=== PATIENT | female | born 1985 | race Caucasian/White ===

== ENCOUNTER 2024-10-27 17:16 | Emergency (ER) | payer SELFPAY ==
[2024-10-27 17:21] VITALS: BP 157/98; PULSE 98; TEMP 36.9; O2SAT 100; BMI 20.1
--- NOTE | 2024-10-27 17:51 | XR_ITS ---
The [address] [address] Patient Name: ANA JONES MRN: [id number] date: 1985 Sex: F Assigned Patient Location: ED.MAIN Current Patient Location: Accession/Order Number: [id number] Exam Date: 10/27/2024 17:45 Report Date: 10/27/2024 20:08 At the request of: BELIA HADLEY Procedure: XR knee LT 4V EXAM: XR knee LT 4V HISTORY: pain COMPARISON: None. TECHNIQUE: AP, oblique, lateral, sunrise view left knee. FINDINGS: No fracture or joint effusion. Normal mineralization. Normal patellofemoral alignment. No periarticular calcification or loose body. Normal mineralization. XR/XR knee LT 4V IMPRESSION: Normal left knee without fracture or joint effusion. Normal joints and soft tissues. Electronically authenticated by: NEO BLOCK Date: 10/27/2024 20:08
--- NOTE | 2024-10-27 19:07 | ED.LOWEXI1 ---
HPI HPI - Extremity Injury (Lower) General Chief Complaint: Extremity Injury, Lower Stated Complaint: LOWER INJURY Time Seen by Provider: 10/27/24 19:00 Mode of arrival: walk-in History of Present Illness HPI Narrative: This 39-year-old female is for evaluation of left knee pain since September 29. The patient states she was on her knees giving her boyfriend a shoulder rub when she felt a popping sensation in her left knee. Since that time she has had intermittent pain and feels a lump over her patella. She denies any aniket injury. She has been wearing a knee brace. She has pain in the patella area as well as posteriorly in the posterior popliteal area and medially. She has no calf pain or swelling. She denies any chest pain or shortness of breath. Related Data Home Medications ?Medication ?Instructions ?Recorded ?Confirmed No Known Home Medications 10/27/24 10/27/24 Allergies Allergy/AdvReac Type Severity Reaction Status Date / Time Penicillins AdvReac Severe Hives Verified 10/27/24 17:21 Opioid HPI Opioid Management Most Recent Pain and Opioid Data: Last Pain Scale 2 10/27/24 18:33 10/27/24 Review of Systems ROS Status of ROS 10 or more systems reviewed and unremarkable except as noted in history and below PFSH PFSH Social History Little interest or pleasure in doing things: not at all Feeling down, depressed, or hopeless: not at all Exam Narrative Exam Narrative: Vital signs and Nursing Notes reviewed: Patient is afebrile with a normal pulse, blood pressure is elevated 157/98, she is not hypoxic with pulse ox of 100% on room air General: Awake, alert, oriented, no acute distress, lying comfortably on the stretcher HEENT: Normocephalic atraumatic, mucous membranes are moist and pink, eyes are clear, normal conjunctiva, vision is grossly intact Chest: Lungs are clear to auscultation with good air entry, there is no wheezing rhonchi or rales appreciated no accessory muscle use, patient is speaking in complete sentences-no chest wall tenderness to palpation CVS: Regular rate and rhythm S1-S2, no murmurs rubs or gallops, pulses are brisk and equal bilaterally ABD: Soft, nondistended, nontender, no rebound guarding or rigidity, bowel sounds are normal, no pulsatile masses appreciated Extremities: Moving all extremities, mild discomfort with full extension of the left knee. The joint is stable with a normal anterior draw. There is no pain with valgus or varus strain. There is no crepitus effusion redness swelling or other notable deformity. There is no tenderness in the calf. Skin: Normal in appearance without rash,pallor, petechiae or purpura Neuro: No focal deficits Constitutional Vital Signs, click to edit/add: Last Vital Signs Temp 98.4 F 10/27/24 17:21 Pulse 98 H 10/27/24 17:21 Resp 18 10/27/24 17:21 BP 157/98 H 10/27/24 17:21 Pulse Ox 100 10/27/24 17:21 Course Vital Signs Vital signs: Vital Signs Temperature 98.4 F 10/27/24 17:21 Pulse Rate 98 H 10/27/24 17:21 Respiratory Rate 18 10/27/24 17:21 Blood Pressure 157/98 H 10/27/24 17:21 Pulse Oximetry 100 10/27/24 17:21 Temperature 98.4 F 10/27/24 17:21 Pulse Rate 98 H 10/27/24 17:21 Respiratory Rate 18 10/27/24 17:21 Blood Pressure 157/98 H 10/27/24 17:21 Pulse Oximetry 100 10/27/24 17:21 MDM - Extremity Injury (Lower) MDM Narrative Medical decision making narrative: This 39-year-old female presents for evaluation of pain in her left knee that has been present since September 29 after she felt a popping sensation while kneeling on her knee. She has some mild tenderness over the patella without effusion crepitus or other notable abnormality. She has a normal anterior draw test and no pain with valgus or varus strain. She has been wearing a knee brace that gives her some relief. X-ray of the extremity is normal with questionable small area of deformity overlying the patella. She is stable for discharge. She will be referred to outpatient orthopedics and prescribed ibuprofen to use as needed for ongoing or worsening pain. Discharge Plan Discharge Chief Complaint: Extremity Injury, Lower Clinical Impression: Knee sprain Patient Disposition: Home, Self-Care Time of Disposition Decision: 19:13 Condition: Good Prescriptions / Home Meds: No Action No Known Home Medications Print Language: Uzbek Instructions: Knee Sprain (ED) Referrals: Physician,Non-Staff, [Primary Care Provider] - 1 week Foy,Abdullahi C, MD [Physician] - 1 week
== END 2024-10-27 19:20 | disposition home or self-care (01) ==
PROVIDERS: Emergency Provider Emergency Medicine
DX: S83.92XA Sprain of unspecified site of left knee, initial encounter (principal); X58.XXXA Exposure to other specified factors, initial encounter
CPT/HCPCS: 73564; 99283

== ENCOUNTER 2024-11-28 06:42 | Outpatient (OUT) | payer MEDICAID, SELFPAY ==
--- OUTSIDE RECORDS SUMMARY | 2024-11-28 06:45 | XMS_ITS | CCD ---
Author Organization [facility] Care Team Providers Care Pilot Instructor Name Role Phone SMAILI, MARCUS K Unavailable Unavailable SMAILI, MARCUS K Unavailable Unavailable SMAILI, MARCUS K Unavailable Unavailable ELVIE CELIS Unavailable Unavailable TONA ANGEL Attending Unavailable MAKAYLA MCCAIN Consulting Unavailable REQUEST, NONE LISTED Primary Care Unavailable TONA ANGEL Admitting Unavailable TONA ANGEL Consulting Unavailable VLADIMIR HARDIN Attending Unavailable NO PCP, NO PCP Primary Care Unavailable VLADIMIR HARDIN Attending Unavailable VLADIMIR HARDIN Referring Unavailable NO PCP, NO PCP Primary Care Unavailable NO PCP, NO PCP Primary Care Unavailable Allergies Allergy Classification Reported Allergen(s) Allergy Type Date of Onset Reaction(s) Facility (2 sources) Latex; Translations: [latex] Propensity to adverse reactions (disorder) 5 [facility] Repository (2 sources) Penicillins; Translations: [PENICILLINS] Drug allergy (disorder) 2 [facility] Repository (2 sources) Iodinated Contrast Media - IV Dye Drug allergy (disorder) 2 [facility] Repository (1 source) Penicillin Drug Allergy [facility] Repository (1 source) IODINATED CONTRAST MEDIA; Translations: [IODINATED CONTRAST MEDIA] Propensity to adverse reactions to drug (disorder) 8 [facility] Repository Problems Active Problems Problem Classification Problem Date Documented Da te Episodic/Chronic Abdominal pain (4 sources) Epigastric pain; Translations: [EPIGASTRIC PAIN] Onset: 09-08-2020 Episodic Abdominal pain (4 sources) Pelvic and perineal pain; Translations: [PELVIC AND PERINEAL PAIN] Onset: 04-17-2017 Fluid and electrolyte disorders (1 source) Dehydration; Translations: [DEHYDRATION] Onset: 09-10-2020 Episodic Unclassified (2 sources) Unknown / UNK(Unknown) Onset: 04-17-2017 Unclassified (1 source) Dehydrated Onset: 03-22-2024 Past or Other Problems Problem Classification Problem Date Documented Da te Episodic/Chronic Biliary tract disease (1 source) Calculus of gallbladder without cholecystitis without obstruction; Translations: [CALCULUS OF GALLBLADDER W/O CHOLECYSTITIS W/O OBSTRUCTION] Onset: 04-17-2017 Episodic Nausea and vomiting (4 sources) Nausea with vomiting, unspecified; Translations: [Nausea] Onset: 09-10-2020 Episodic Other gastrointestinal disorders (1 source) Diarrhea, unspecified; Translations: [Diarrhea, unspecified] Onset: 03-22-2024 Episodic Other gastrointestinal disorders (1 source) Diarrhea Onset: 03-22-2024 Episodic Results Test Name Value Interpretation Reference Range Facil ity BASIC METABOLIC PANLon 03-22 Anion gap [Moles/Vol] 11 mmol/L Normal 5-15 [facility] Comment on above: Performed By: #### C ELIOT PALMA, 3040-3, LIVR #### [facility] ([id number]) [address] [place] [address] 54702 Calcium [Mass/Vol] 9.0 mg/dL Normal 8.5-10.5 [facility] Comment on above: Performed By: #### ELIOT Etienne BCA, 3040-3, LIVR #### [facility] ([id number]) [address] [place] [address] 62954 Chloride [Moles/Vol] 110 mmol/L High 98-109 [facility] Comment on above: Performed By: #### Lowell PALMA BMP, 3040-3, LIVR #### [facility] ([id number]) [address] [place] [address] 08416 CO2 [Moles/Vol] 18 mmol/L Low 22-32 [facility] Comment on above: Performed By: #### Lowell PALMA BMP, 3040-3, LIVR #### [facility] ([id number]) [address] [place] [address] 32843 Creatinine [Mass/Vol] 0.99 mg/dL Normal 0.40-1.00 [facility] Comment on above: Result Comment: METH OD TRACEABLE TO IDMS STANDARD Performed By: #### C LOUIE BMP, 3040-3, LIVR #### [facility] ([id number]) [address] [place] [address] 40744 GFR/1.73 sq M.predicted among non-blacks MDRD (S/P/Bld) [Vol rate/Area] 74 mL/min/{1.73_m2} Normal >59 [facility] Comment on above: Result Comment: Reported eGFR is based on the CKD-EPI 2020 equation that does not use a race coefficient. Performed By: #### C LOUIE BMP, 3040-3, LIVR #### [facility] ([id number]) [address] [place] [address] 79508 Glucose [Mass/Vol] 124 mg/dL High 65-99 [facility] Comment on above: Performed By: #### C LOUIE BMP, 3040-3, LIVR #### [facility] ([id number]) [address] [place] [address] 81081 Potassium [Moles/Vol] 3.5 mmol/L Normal 3.5-5.0 [facility] Comment on above: Performed By: #### C LOUIE BMP, 3040-3, LIVR #### [facility] ([id number]) [address] [place] [address] 95206 Sodium [Moles/Vol] 139 mmol/L Normal 134-146 [facility] Comment on above: Performed By: #### C LOUIE BMP, 3040-3, LIVR #### [facility] ([id number]) [address] [place] [address] 76653 Urea nitrogen [Mass/Vol] 11 mg/dL Normal 5-23 [facility] Comment on above: Performed By: #### C BCA, BMP, 3040-3, LIVR #### [facility] ([id number]) [address] [place] [address] 61611 CBC AND AUTO DIFFon 03-22- 24 ABSOLUTE BASOPHIL 0.0 X10E9/L Normal 0.0-0.2 [facility] Comment on above: Performed By: #### C LOUIE, BMP, 3040-3, LIVR #### [facility] ([id number]) [address] [place] [address] 15350 ABSOLUTE NEUTROPHIL 7.3 X10E9/L High 1.5-6.6 [facility] Comment on above: Performed By: #### C LOUIE, ELIOT, 0-3, LIVR #### [facility] ([id number]) [address] [place] [address] 76502 Basophils/100 WBC (Bld) 0.4 % Normal [facility] Comment on above: Performed By: #### C LOUIE, ELIOT, 3039-3, LIVR #### [facility] ([id number]) [address] [place] [address] 27819 Eosinophils (Bld) [#/Vol] 0.0 10*3/uL Normal 0.0-0.4 [facility] Comment on above: Performed By: #### C LOUIE, BMP, 0-3, LIVR #### [facility] ([id number]) [address] [place] [address] 82568 Eosinophils/100 WBC (Bld) 0.3 % Normal [facility] Comment on above: Performed By: #### C LOUIE, BMP, 0-3, LIVR #### [facility] ([id number]) [address] [place] [address] 17222 Erythrocyte distribution width (RBC) [Ratio] 12.7 % Normal 11.5-15.0 [facility] Comment on above: Performed By: #### C LOUIE, BMP, 3040-3, LIVR #### [facility] ([id number]) [address] [place] [address] 80444 Hematocrit (Bld) [Volume fraction] 39.2 % Normal 35-47 [facility] Comment on above: Performed By: #### C ELIOT PALMA, 3039-12, LIVR #### [facility] ([id number]) [address] [place] [address] 78324 Hemoglobin (Bld) [Mass/Vol] 13.5 g/dL Normal 11.7-15.5 [facility] Comment on above: Performed By: #### C ELIOT PALMA, 3039-12, LIVR #### [facility] ([id number]) [address] [place] [address] 94732 Lymphocytes (Bld) [#/Vol] 0.8 10*3/uL Low 1.0-3.5 [facility] Comment on above: Performed By: #### C ELIOT PALMA, 3039-12, LIVR #### [facility] ([id number]) [address] [place] [address] 36652 Lymphocytes/100 WBC (Bld) 9.3 % Normal [facility] Comment on above: Performed By: #### C ELIOT PALMA, 3039-12, LIVR #### [facility] ([id number]) [address] [place] [address] 42338 MCH (RBC) [Entitic mass] 32.2 pg Normal 27-34 [facility] Comment on above: Performed By: #### C ELIOT PALMA, 3039-12, LIVR #### [facility] ([id number]) [address] [place] [address] 19367 MCHC (RBC) [Mass/Vol] 34.5 g/dL Normal 32-36 [facility] Comment on above: Performed By: #### C ELIOT PALMA, 3, LIVR #### [facility] ([id number]) [address] [place] [address] 41994 MCV (RBC) [Entitic vol] 93 fL Normal 80-100 [facility] Comment on above: Performed By: #### ELIOT Etienne BCA, 3039-3, LIVR #### [facility] ([id number]) [address] [place] [address] 63484 Monocytes (Bld) [#/Vol] 0.4 10*3/uL Normal 0-0.9 [facility] Comment on above: Performed By: #### ELIOT Etienne BCA, 3039-3, LIVR #### [facility] ([id number]) [address] [place] [address] 57249 Monocytes/100 WBC (Bld) 4.9 % Normal [facility] Comment on above: Performed By: #### ELIOT Etienne BCA, 3039-12, LIVR #### [facility] ([id number]) [address] [place] [address] 73125 Neutrophils/100 WBC (Bld) 85.1 % Normal [facility] Comment on above: Performed By: #### ELIOT Etienne BCA, 3039-12, LIVR #### [facility] ([id number]) [address] [place] [address] 26880 Platelet mean volume (Bld) [Entitic vol] 7.9 fL Normal 7-12 [facility] Comment on above: Performed By: #### ELIOT Etienne BCA, 3, LIVR #### [facility] ([id number]) [address] [place] [address] 90592 Platelets (Bld) [#/Vol] 286 10*3/uL Normal 150-450 [facility] Comment on above: Performed By: #### ELIOT Etienne BCA, 3039-3, LIVR #### [facility] ([id number]) [address] [place] [address] 73004 RBC COUNT 4.20 X10E12/L Normal 3.80-5.20 [facility] Comment on above: Performed By: #### C BCA, BMP, 3040-3, LIVR #### [facility] ([id number]) [address] [place] [address] WBC (Bld) [#/Vol] 8.6 10*3/uL Normal 4.0-11.0 [facility] Comment on above: Performed By: #### C BCA, BMP, 3040-3, LIVR #### [facility] ([id number]) [address] [place] [address] CT ABDOMEN AND PELVIS WO CON Ton 03-22-2024 CT ABDOMEN AND PELVIS WO CONT CT ABDOMEN AND PELVIS WO CONT CLINICAL INFORMATION: Right side abdominal pain with nausea, vomiting and diarrhea.. TECHNIQUE: CT Abdomen and Pelvis without intravenous contrast. All CT scans at this facility use dose modulation, iterative reconstruction, and/or weight based dosing when appropriate to reduce radiation dose to as low as reasonably achievable. COMPARISON: 03/30/2008 FINDINGS: Lung bases: Within normal limits Bony structures: Age compatible Abdomen: The liver, gallbladder, pancreas, spleen and adrenal gland show no evidence of acute disease within the confines of a noncontrast study. Nonobstructive bowel gas pattern. No free air. No evidence of appendicitis. No obvious bowel inflammation. Bilateral intrarenal calculi. Largest on the right 2 mm mid calyx. No hydronephrosis. More numerous calculi on the left largest measures 5 mm overlying the renal pelvis without significant caliectasis. Pelvis: No free fluid. Urinary bladder is decompressed and not well evaluated. 2 adjacent small calculi measuring 1 to 2 mm over the right urinary bladder base. Potentially recently passed calculi. No upstream dilatation or stranding. Uterus and ovaries retained. No gross adnexal pathology. Abdominal aorta appears normal. No retroperitoneal adenopathy or hematoma demonstrated. IMPRESSION: * Bilateral intrarenal calculi without evidence of obstruction. 5 mm calculus within the left renal pelvis and 2 small calculi overlie the right urinary bladder base. Potentially recently passed through the UVJ. Finalized by Chinedu Chavez DO on 03/22/2024 11:02 AM Normal [facility] HCG ( test) Ql (U)o n 03-22-2024 Beta HCG ( test) Ql (U) Negative Normal NEG [facility] Comment on above: Performed By: #### 2 106-3 #### [facility] ([id number]) [address] [place] [address] 52735 LIPASEon 03-22-2024 Lipase [Catalytic activity/Vol] 25 U/L Normal 17-40 [facility] Comment on above: Performed By: #### C BCA, BMP, 3040-3, LIVR #### [facility] ([id number]) [address] [place] [address] 15195 LIVER PANELon 03-22-2024 Albumin [Mass/Vol] 5.0 g/dL Normal 3.2-5.3 [facility] Comment on above: Performed By: #### C BCA, BMP, 3040-3, LIVR #### [facility] ([id number]) [address] [place] [address] 92754 ALP [Catalytic activity/Vol] 68 U/L Normal 39-130 [facility] Comment on above: Performed By: #### C BCA, BMP, 3040-3, LIVR #### [facility] ([id number]) [address] [place] [address] 04460 ALT [Catalytic activity/Vol] 16 U/L Normal 0-31 [facility] Comment on above: Performed By: #### C BCA, BMP, 3040-3, LIVR #### [facility] ([id number]) [address] [place] [address] 51905 AST [Catalytic activity/Vol] 22 U/L Normal 0-41 [facility] Comment on above: Performed By: #### C BCA, BMP, 3040-3, LIVR #### [facility] ([id number]) [address] [place] [address] 89573 Bilirubin [Mass/Vol] 0.8 mg/dL Normal 0.3-1.2 [facility] Comment on above: Performed By: #### C ELIOT PALMA, 3040-3, LIVR #### [facility] ([id number]) [address] [place] [address] 04061 Bilirubin.direct [Mass/Vol] 0.1 mg/dL Normal 0.0-0.4 [facility] Comment on above: Performed By: #### C ELIOT PALMA, 3039-12, LIVR #### [facility] ([id number]) [address] [place] [address] 57610 Protein [Mass/Vol] 8.4 g/dL High 6.0-8.0 [facility] Comment on above: Performed By: #### C ELIOT PALMA, 3039-12, LIVR #### [facility] ([id number]) [address] [place] [address] [place] [address] URN MACROSCOPIC NURon 2023 BILIRUBIN ABRAHAM Small Abnormal NEG [facility] Comment on above: Performed By: #### N UM #### [facility] ([id number]) [address] [place] [address] 88767 BLOOD/HGB ABRAHAM MODERATE Abnormal NEG [facility] Comment on above: Performed By: #### N UM #### [facility] ([id number]) [address] [place] [address] [place] [address] GLUCOSE ABRAHAM Negative Normal NEG [facility] Comment on above: Performed By: #### N UM #### [facility] ([id number]) [address] [place] [address] [place] [address] KETONES ABRAHAM 40 mg/dL Abnormal NEG [facility] Comment on above: Performed By: #### N UM #### [facility] ([id number]) [address] [place] [address] 50683 LEUKOCYTE ESTERASE ABRAHAM Negative Normal NEG [facility] Comment on above: Performed By: #### N UM #### [facility] ([id number]) [address] [place] [address] 23288 NITRITE ABRAHAM Negative Normal NEG [facility] Comment on above: Performed By: #### N UM #### [facility] ([id number]) [address] [place] [address] 46430 PH ABRAHAM 6.0 Normal 5.0-8.5 [facility] Comment on above: Performed By: #### N UM #### [facility] ([id number]) [address] [place] [address] 62959 PROTEIN ABRAHAM 30 mg/dL Abnormal NEG [facility] Comment on above: Performed By: #### N UM #### [facility] ([id number]) [address] [place] [address] 97413 SPECIFIC GRAVITY ABRAHAM 1.020 Normal 1.003-1.035 [facility] Comment on above: Performed By: #### N UM #### [facility] ([id number]) [address] [place] [address] 56487 UROBILINOGEN ABRAHAM 0.2 eu/dL Normal <1.1 [facility] Comment on above: Performed By: #### N UM #### [facility] ([id number]) [address] [place] [address] 40875 AMYLASEon 09-08-2020 Amylase [Catalytic activity/Vol] 49 U/L Normal 31-110 [facility] Comment on above: Performed By: #### C MP, TROP, CHRIS, LIPA #### [facility] [address] [address] Rashard Soto CBC AUTO DIFFon 09-08-2020 Basophils (Bld) [#/Vol] 0.0 103/ul Normal 0.0-0.1 [facility] Comment on above: Performed By: #### C BC #### [facility] [address] [place], [place] [address] Rashard Brittany Basophils/100 WBC (Bld) 0.4 % Normal 0.2-2.0 [facility] Comment on above: Performed By: #### C BC #### [facility] [address] [place], [place] [address] Rashard Brittany Eosinophils (Bld) [#/Vol] 0.0 103/ul Normal 0.0-0.7 [facility] Comment on above: Performed By: #### C BC #### [facility] [address] [place], [place] [address] Rashard Brittany Eosinophils/100 WBC (Bld) 0.2 % Critically low 0.9-7.0 [facility] Comment on above: Performed By: #### C BC #### [facility] [address] [place] [address] Rashard Brittany Erythrocyte distribution width (RBC) [Ratio] 12.0 % Normal 11.0-15.0 [facility] Comment on above: Performed By: #### C BC #### [facility] [address] [place], [place] [address] Rashard Brittany Hematocrit (Bld) [Volume fraction] 38.0 % Normal 36.0-48.0 [facility] Comment on above: Performed By: #### C BC #### [facility] [address] [place], [place] [address] Rashard Brittany Hemoglobin (Bld) [Mass/Vol] 12.4 g/dL Normal 12.0-16.0 [facility] Comment on above: Performed By: #### C BC #### [facility] [address] [place], [place] [address] Rashard Brittany IG # 0.01 10e3/ul Normal 0.00-0.03 [facility] Comment on above: Performed By: #### C BC #### [facility] [address] [place] [address] Rashard Brittany IG % 0.1 % Normal 0.0-0.5 [facility] Comment on above: Performed By: #### C BC #### [facility] [address] [place], [place] [address] Rashard Brittany Lymphocytes (Bld) [#/Vol] 1.0 103/ul Critically low 1.2-3.8 [facility] Comment on above: Performed By: #### C BC #### [facility] [address] [place], [place] [address] Rashard Brittany Lymphocytes/100 WBC (Bld) 11.8 % Critically low 20.5-60.0 [facility] Comment on above: Performed By: #### C BC #### [facility] [address] [phone] Rashard Brittany MANUAL DIFF REQ NO Normal [facility] Comment on above: Performed By: #### C BC #### [facility] [address] [place], [place] [address] Rashard Brittany MCH (RBC) [Entitic mass] 30.3 pg Normal 26.7-34.0 [facility] Comment on above: Performed By: #### C BC #### [facility] [address] [place], [place] [address] Rashard Brittany MCHC (RBC) [Mass/Vol] 32.6 g/dL Normal 29.9-35.2 [facility] Comment on above: Performed By: #### C BC #### [facility] [address] [place], [place] [address] Rashard Brittany MCV (RBC) [Entitic vol] 92.9 fL Normal 81.0-99.0 [facility] Comment on above: Performed By: #### C BC #### [facility] [address] [place], [place] [address] Rashard Brittany Monocytes (Bld) [#/Vol] 0.3 103/ul Normal 0.3-0.8 [facility] Comment on above: Performed By: #### C BC #### [facility] [address] [place] [address] 88464 Rashard Brittany Monocytes/100 WBC (Bld) 3.8 % Normal 1.7-12.0 [facility] Comment on above: Performed By: #### C BC #### [facility] [address] [place], [place] [address] Rashard Soto Neutrophils (Bld) [#/Vol] 7.1 103/ul Critically high 1.4-6.5 [facility] Comment on above: Performed By: #### C BC #### [facility] [address] [place], [place] [address] Rashard Soto Neutrophils/100 WBC (Bld) 83.7 % Critically high 43.0-75.0 [facility] Comment on above: Performed By: #### C BC #### [facility] [address] [place] [address] Rashard Soto Platelet mean volume (Bld) [Entitic vol] 9.4 fL Critically low 9.5-13.5 [facility] Comment on above: Performed By: #### C BC #### [facility] [address] [place] [address] 86876 Rashard Soto Platelets (Bld) [#/Vol] 298 103/ul Normal 150-450 [facility] Comment on above: Performed By: #### C BC #### [facility] [address] [place] [address] 90452 Rashard Soto RBC (Bld) [#/Vol] 4.09 106/ul Critically low 4.20-5.[address] [facility] Comment on above: Performed By: #### C BC #### [facility] [address] [place] [address] 92792 Rashard Soto WBC (Bld) [#/Vol] 8.5 103/ul Normal 4.0-11.0 [facility] Comment on above: Performed By: #### C BC #### [facility] [address] [place] [address] ABD/PELVIS WO CONon 09-08 CT ABD/PELVIS WO CON EXAMINATION: CT ABD/PELVIS WO CON HISTORY: UNSPECIFIED ABDOMINAL PAIN ; acute epigastric pain and discomfort COMPARISON: No relevant comparison available. TECHNIQUE: Axial, Coronal, and Sagittal images were created without IV contrast. Dose reduction techniques were achieved by using automated exposure control and/or adjustment of mA and/or kV according to patient size and/or use of iterative reconstruction technique. FINDINGS: LUNG BASES: No visible pulmonary or pleural disease. LIVER: No enlargement, atrophy, abnormal density, or significant focal lesion. BILIARY: No dilatation or calcification. PANCREAS: No lesion, fluid collection, ductal dilatation, or atrophy. SPLEEN: No enlargement or focal lesion. ADRENALS: No mass or enlargement. KIDNEYS: Several small nonobstructing stones within the right and left kidney. Unremarkable ureters. BOWEL/MESENTERY: No visible mass, obstruction, or bowel wall thickening. AORTA/VASCULAR: No aneurysm or dissection. RETROPERITONEUM: No mass or adenopathy. LYMPH NODES: No adenopathy. URINARY BLADDER: No visible focal wall thickening, lesion, or calculus. PELVIC ORGANS: No visible mass. Pelvic organs appropriate for patient age. ABDOMINAL WALL: No mass or hernia. BONES: No bony lesion or fracture. OTHER: Negative. IMPRESSION: 1. Bilateral nonobstructing nephrolithiasis. 2. No acute or suspicious findings to account for the patient's symptoms. Electronically authenticated by: MAKAYLA MCCAIN Date: 2020-09-08 14:14 Normal [facility] DRUG SCREEN RAPID (URINE)on 09-08-2020 AMP Negative Normal NEGATIVE [facility] Comment on above: Performed By: #### D VANESSA ERUR #### [facility] [address] BAR Negative Normal NEGATIVE [facility] Comment on above: Performed By: #### D VANESSA ERUR #### [facility] [address] [place] [address] Rashard Brittany BUP Negative Normal NEGATIVE [facility] Comment on above: Performed By: #### D VANESSA ERUR #### [facility] [address] [address] Rashard Brittany BZO Negative Normal NEGATIVE [facility] Comment on above: Performed By: #### D VANESSA ERUR #### [facility] [address] [address] Rashard Brittany YO Negative Normal NEGATIVE [facility] Comment on above: Performed By: #### D RUGRPD, ERUR #### [facility] Laboratory [address] [place] [address] Rashard Brittany CUT-OFFS SEE BELOW Normal [facility] Comment on above: Result Comment: AMP (Amphetamine): 500ng/mL, BAR (Barbituates): 200 ng/mL, BZO (Benzodiazepines): 150 ng/mL, BUP (Buprenorphine): 10 ng/mL, YO (Cocaine): 150 ng/mL, mAMP (Methamphetamine): 500 ng/mL, MTD (Methadone): 200 ng/mL, OPI (Opiates): 100 ng/mL or 2000 ng/mL, OXY (Oxycodone): 100 ng/mL, PCP (Phencyclidine): 25 ng/mL, PPX (Propoxyphene): 300 ng/mL, THC (Cannabinoids): 50 ng/mL, TCA (Trycyclic Antidepressants): 300 ng/mL Performed By: #### D VANESSA, ERUR #### [facility] [address] [place] [address] [facility]UG CLASS TEST SYSTEM CUT-OFF CONCENTRATIONS ARE FOLLOWS: Normal [facility] Comment on above: Performed By: #### D VANESSA, ERUR #### [facility] [address] [place] [address] Rashard Brittany mAMP Negative Normal NEGATIVE [facility] Comment on above: Performed By: #### D VANESSA, ERUR #### [facility] [address] [place] [address] Rashard Brittany MTD Negative Normal NEGATIVE [facility] Comment on above: Performed By: #### D VANESSA, ERUR #### [facility] [address] [place] [address] Rashard Brittany OPI Negative Normal NEGATIVE [facility] Comment on above: Performed By: #### D VANESSA, ERUR #### [facility] [address] [place] [address] Rashard Brittany OXY Negative Normal NEGATIVE [facility] Comment on above: Performed By: #### Maninder MENDEZ, ERUR #### [facility] [address] [place] [address] Rashard Brittany PCP Negative Normal NEGATIVE [facility] Comment on above: Performed By: #### D VANESSA, ERUR #### [facility] [address] [place] [address] Rashard Brittany PPX Negative Normal NEGATIVE [facility] Comment on above: Performed By: #### D VANESSA, ERUR #### [facility] [address] [place] [address] Rashard Brittany TCA Positive Normal NEGATIVE [facility] Comment on above: Performed By: #### Maninder MENDEZ, ERUR #### [facility] [address] [place] [address] Rashard Brittany THC Positive Normal NEGATIVE [facility] Comment on above: Performed By: #### Maninder MENDEZ, ERUR #### [facility] [address] [place] [address] Rashard Brittany ER URINE PROFILEon 0 Bilirubin [Mass/Vol] Negative Normal NEGATIVE [facility] Comment on above: Performed By: #### Maninder MENDEZ, ERUR #### [facility] [address] [place] [address] Rashard Brittany BLOOD Negative Normal NEGATIVE [facility] Comment on above: Performed By: #### Maninder MENDEZ, ERUR #### [facility] [address] [place] [address] Rashard Brittany Clarity (U) CLEAR Normal [facility] Comment on above: Performed By: #### Maninder MENDEZ, ERUR #### [facility] [address] [place] [address] Rashard Brittany Color (U) LT. YELLOW Normal YELLOW [facility] Comment on above: Performed By: #### Maninder MENDEZ, ERUR #### [facility] [address] [place] [address] Rashard Brittany ERUAHD A micrscopic examination will be performed if indicated. Normal [facility] Comment on above: Performed By: #### Maninder MENDEZ, ERUR #### [facility] [address] [place] [address] Rashard Brittany Glucose [Mass/Vol] Negative Normal NEGATIVE [facility] Comment on above: Performed By: #### D VANESSA, ERUR #### [facility] [address] [id number] Rashard Brittany Ketones Ql (U) Negative Normal NEGATIVE The [facility] Comment on above: Performed By: #### D VANESSA, ERUR #### [facility] [address] [id number] Rashard Brittany Nitrite Ql (U) Negative Normal NEGATIVE [facility] Comment on above: Performed By: #### D VANESSA, ERUR #### [facility] [address] [id number] Rashard Brittany pH (Bld) 5.5 Normal 5-9 [facility] Comment on above: Performed By: #### D VANESSA, ERUR #### [facility] [address] [id number] Rashard Brittany Protein (U) [Mass/Vol] Negative Normal [facility] Comment on above: Performed By: #### D VANESSA, ERUR #### [facility] [address] [place] [address] Rashard Brittany SPEC GRAVITY 1.015 Normal 1.005-<=1.025 [facility] Comment on above: Performed By: #### Maninder MENDEZ, ERUR #### [facility] [address] [place], [place] [id number] Rashard Brittany UR MICRO IND NOT INDICATED Normal [facility] Comment on above: Performed By: #### D VANESSA, ERUR #### [facility] [address] [id number] Rashard Brittany Urobilinogen Qn (U) 0.2 EU/dl Normal [facility] Comment on above: Performed By: #### Maninder MENDEZ, ERUR #### [facility] [address] [phone] Rashard Brittany WBC (Bld) [#/Vol] Negative Normal NEGATIVE [facility] Comment on above: Performed By: #### Maninder MENDEZ, ERUR #### [facility] [address] [place] [address] Rashard Brittany LIPASEon 09-08-2020 Lipase [Catalytic activity/Vol] 83.0 U/L Normal 23.0-300.0 [facility] Comment on above: Performed By: #### C MP, TROP, CHRIS, LIPA #### [facility] [address] [place] [address] Rashard Brittany PROF 14(COMP METB)on 020 Albumin [Mass/Vol] 3.7 g/dL Normal 3.5-5.0 [facility] Comment on above: Performed By: #### C MP, TROP, CHRIS, LIPA #### [facility] [address] [place] [address] Rashard Brittany Albumin/Globulin [Mass ratio] 1.0 {ratio} Normal [facility] Comment on above: Performed By: #### C MP, TROP, CHRIS, LIPA #### [facility] [address] [place] [address] Rashard Brittany ALP [Catalytic activity/Vol] 67 U/L Normal 38-126 [facility] Comment on above: Performed By: #### C MP, TROP, CHRIS, LIPA #### [facility] [address] [place] [address] Rashard Brittany ALT [Catalytic activity/Vol] 16 U/L Normal 9-52 [facility] Comment on above: Performed By: #### C MP, TROP, CHRIS, LIPA #### [facility] [address] [place] [address] Rashard Brittany Anion gap [Moles/Vol] 14.5 mmol/L Normal [facility] Comment on above: Performed By: #### C MP, TROP, CHRIS, LIPA #### [facility] [address] [place] [address] Rashard Brittany AST [Catalytic activity/Vol] 16 U/L Normal 14-36 [facility] Comment on above: Performed By: #### C MP, TROP, CHRIS, LIPA #### [facility] [address] [place] [address] Rashard Brittany Bilirubin Ql (U) 0.3 mg/dL Normal 0.2-1.3 [facility] Comment on above: Performed By: #### C MP, TROP, CHRIS, LIPA #### [facility] [address] [place] [address] Rashard Brittany Calcium [Mass/Vol] 8.4 mg/dL Normal 8.4-10.2 [facility] Comment on above: Performed By: #### C MP, TROP, CHRIS, LIPA #### [facility] [address] [place] [address] Rashard Brittany Chloride [Moles/Vol] 106 mmol/L Normal 98-107 [facility] Comment on above: Performed By: #### C MP, TROP, CHRIS, LIPA #### [facility] [address] [place] [address] Rashard Brittany CO2 [Moles/Vol] 21.3 mmol/L Critically low 22.0-30.0 [facility] Comment on above: Performed By: #### C MP, TROP, CHRIS, LIPA #### [facility] [address] [place] [address] Rashard Brittany Creatinine [Mass/Vol] 0.91 mg/dL Normal 0.52-1.04 [facility] Comment on above: Performed By: #### C MP, TROP, CHRIS, LIPA #### [facility] [address] [place] [address] Rashard Brittany EGFR-AF IRAQI >60 Normal >=60 [facility] Comment on above: Performed By: #### C MP, TROP, CHRIS, LIPA #### [facility] [address] [place] [address] Rashard Brittany EGFR-NON AF IRAQI >60 Normal >=60 [facility] Comment on above: Performed By: #### C MP, TROP, CHRIS, LIPA #### [facility] [address] [place] [address] Rashard Brittany Globulin (S) [Mass/Vol] 3.7 g/dL Normal [facility] Comment on above: Performed By: #### C MP, TROP, CHRIS, LIPA #### [facility] [address] [address] Rashard Brittany Glucose [Mass/Vol] 113 mg/dL Critically high 74-106 [facility] Comment on above: Performed By: #### C MP, TROP, CHRIS, LIPA #### [facility] [address] [place] [address] Rashard Brittany Potassium [Moles/Vol] 3.8 mmol/L Normal 3.4-5.0 [facility] Comment on above: Performed By: #### C MP, TROP, CHRIS, LIPA #### [facility] [address] [place] [address] Rashard Brittany Protein [Mass/Vol] 7.4 g/dL Normal 6.1-8.2 [facility] Comment on above: Performed By: #### C MP, TROP, CHRIS, LIPA #### [facility] [address] [place] [address] Rashard Brittany Sodium [Moles/Vol] 138 mmol/L Normal 137-145 [facility] Comment on above: Performed By: #### C MP, TROP, CHRIS, LIPA #### [facility] [address] [place] [address] Rashard Brittany Urea nitrogen [Mass/Vol] 7.0 mg/dL Normal 7.0-17.0 [facility] Comment on above: Performed By: #### C MP, TROP, CHRIS, LIPA #### [facility] [address] [place] [address] Rashard Brittany Urea nitrogen/Creatinin e [Mass ratio] 7.7 mg/mg Normal [facility] Comment on above: Performed By: #### C MP, TROP, CHRIS, LIPA #### [facility] [address] [place] [address] Rashard Brittany TROPONIN - Ion 09-08-2020 Troponin I.cardiac [Mass/Vol] ng/mL Normal <=0.034 [facility] Comment on above: Performed By: #### C MP, TROP, CHRIS, LIPA #### [facility] [address] [place] [address] Rashard Soto Troponin I.cardiac [Mass/Vol] SEE BELOW Normal [facility] Comment on above: Result Comment: <0.0 34 ng/ml NEGATIVE 0.034-0.119 INDETERMINATE 0.120 AMI CUT OFF Performed By: #### C MP, TROP, CHRIS, LIPA #### [facility] [address] [place], [place] [address] Rashard Soto Encounters Encounter Date Encounter Type Care Provider Facility Start: 10-27-2024 End: 10-27-2024 Emergency department patient visit NO PCP NO PCP [facility] Start: 03-22-2024 End: 03-23-2024 Emergency department patient visit VLADIMIR HARDIN [facility] Start: 09-08-2020 End: 09-08-2020 Patient encounter procedure TONA ANGEL Facility: Start: 04-17-2017 End: 04-18-2017 Ambulatory MARCUS PARSON Facility:[email or web address] Payers Date Payer Category Payer Unknown [id number] [id number] [id number] 1985 Unknown [id number] 1985 Unknown [id number] 1985 Unknown [id number] 1959 Unknown [id number] Summary Purpose Family History No Family History Records FoundNo Family History Records FoundNo Family History Records Found Advance Directives No Advanced Directives Records FoundNo Advanced Directives Records FoundNo Advanced Directives Records Found Additional Source Comments INFORMATION SOURCE (unrecogn ized section and content) DATE CREATED AUTHOR 04/24/2018 [facility] DATE CREATED AUTHOR AUTHOR'S ORGANIZ ATION 09/15/2020 [facility] DATE CREATED AUTHOR AUTHOR'S ORGANIZ ATION 10/29/2024 [facility] FOR RECORDS PERTAINING TO PATIENTS WHO ARE OR HAVE BEEN ENROLLED IN A CHEMICAL DEPENDENCY/SUBSTANCEABUSE PROGRAM, SOME INFORMATION MAY BE OMITTED. This clinical summary was aggregated from multiple sources. Caution should be exercised in using it in the provision of clinical care. This summary normalizes information from multiple sources, and as a consequence, information in this document may materially change the coding, format and clinical context of patient data. In addition, data may be omitted in some cases. CLINICAL DECISIONS SHOULD BE BASED ON THE PRIMARY CLINICAL RECORDS. [facility]. provides no warranty or guarantee of the accuracy or completeness of information in this document.
--- NOTE | 2024-11-28 06:47 | MR_ITS ---
[place] [id number] Patient Name: ANA JONES MRN: [id number] date: 1985 Sex: F Assigned Patient Location: MRI Current Patient Location: MRI Accession/Order Number: [id number] Exam Date: 11/28/2024 06:55 Report Date: 11/28/2024 07:47 At the request of: EMMETT TERAN Procedure: MR knee LT wo con EXAMINATION: MR knee LT wo con HISTORY: Acute Pain Of Left Knee, Effusion Left Knee COMPARISON: No relevant comparison available. TECHNIQUE: A complete multi-planar MRI was performed. 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 CARTILAGE: No visible defect. BONES: No marrow pathology, fracture, or significant arthropathy. 3.3 mm area of decreased signal in the medial femoral condyle possibly an enostosis. MCL AND MEDIAL CAPSULE: Normal medial collateral ligament and medial capsule. LATERAL COMPARTMENT LATERAL MENISCUS: No visible tear or significant degeneration. CARTILAGE: No visible defect. BONES: No marrow pathology, fracture, or significant arthropathy. LCL/POSTEROLAT COMPLEX: Normal lateral collateral ligament, fascicles, lateral capsule and ligaments. ANTERIOR COMPARTMENT PATELLA: No marrow pathology, fracture, or significant arthropathy. CARTILAGE: No visible defect. TENDONS: Normal. EFFUSION: None. No synovitis or loose bodies. ACL: Normal appearing ligament. PCL: Normal appearing ligament. MENISCOFEMORAL: Normal meniscofemoral ligaments. OTHER: Negative. MR/MR knee LT wo con IMPRESSION: Mild degeneration posterior horn medial meniscus No acute abnormality Electronically authenticated by: ALVARADO TAO Date: 11/28/2024 07:47
== END 2024-11-28 06:43 | disposition home or self-care (01) ==
LOC: MRI 06:42
PROVIDERS: Visit Provider Physician Assistant
DX: M25.562 Pain in left knee (principal); M25.462 Effusion, left knee
CPT/HCPCS: 73721